=== PATIENT | female | born 2000 | race Caucasian/White ===

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

== ENCOUNTER 2018-05-16 21:04 | Emergency (ER) | payer OTHER ==
[~2018-05-16] VITALS: Ht 162.6 cm; Wt 90.7 kg
[~2018-05-16 21:04] MED LIST changes: +VENTOLIN HFA18 GM INH
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
== END 2018-05-17 01:12 | disposition home or self-care (01) ==
LOC: ED 21:04
DX: O9A.211 Injury, poisoning and certain other consequences of external causes complicating pregnancy, first trimester (principal); T63.441A Toxic effect of venom of bees, accidental (unintentional), initial encounter; O20.0 Threatened abortion; O20.8 Other hemorrhage in early pregnancy; O99.511 Diseases of the respiratory system complicating pregnancy, first trimester; Z3A.08 8 weeks gestation of pregnancy; O99.331 Smoking (tobacco) complicating pregnancy, first trimester; F17.200 Nicotine dependence, unspecified, uncomplicated; Z91.030 Bee allergy status; Z88.0 Allergy status to penicillin
CPT/HCPCS: 76801; 76817; 80048; 81001; 84702; 84703; 85025; 86900; 86901; 99284

== ENCOUNTER 2018-05-21 15:43 | Emergency (ER) | payer OTHER ==
[~2018-05-21] VITALS: Ht 162.6 cm; Wt 90.7 kg
[2018-05-21] MEDS ORDERED: NORCO 5-325 TA1 EACH PO (19:32)
[2018-05-21] MEDS ORDERED: ONDANSETRON ODT8 MG PO (19:32)
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
== END 2018-05-21 19:41 | disposition home or self-care (01) ==
LOC: ED 15:43
DX: O02.1 Missed abortion (principal); Z87.891 Personal history of nicotine dependence; Z91.038 Other insect allergy status; Z88.0 Allergy status to penicillin; Z91.030 Bee allergy status
CPT/HCPCS: 36415; 84702; 99284